=== PATIENT | male | born 1985 | race Caucasian/White ===

== ENCOUNTER → 2016-05-27 | Outpatient (CLI) | payer OTHER | LOC: KOH-I 08:36 | DX: B18.2 Chronic viral hepatitis C (principal) | CPT/HCPCS: 76705 ==

== ENCOUNTER → 2016-06-16 | Outpatient (CLI) | payer OTHER | LOC: LAB 11:32 | DX: B18.2 Chronic viral hepatitis C (principal) | CPT/HCPCS: 36415; 80074; 80307; 82103; 82105; 82172; 82247; 82390; 82728; 82977; 83010; 83540; 83550; 83883; 84460; 85610; 86039; 86235; 86255; 87390; 87521; 87902; G0480 ==

== ENCOUNTER 2021-04-06 03:24 | Emergency (ER) | payer OTHER ==
[~2021-04-06 03:24] MED LIST: IBUPROFEN800 MG PO
[2021-04-06 04:27] LABS: HEMOGLOBIN 11.9 gm/dl (14.0-17.5); RED BLOOD COUNT 3.65 M/UL (4.20-5.50); WHITE BLOOD COUNT 3.7 K/UL (4.5-11.0)
[2021-04-06 04:58] LABS: BUN/CREATININE RATIO 10 (0-10)
== END 2021-04-06 07:50 | disposition home or self-care (01) ==
LOC: ER1 03:24
PROVIDERS: Physician Assistant Medical
DX: U07.1 COVID-19 (principal); G40.909 Epilepsy, unspecified, not intractable, without status epilepticus; K21.9 Gastro-esophageal reflux disease without esophagitis
CPT/HCPCS: 71045; 80053; 82550; 82553; 83605; 84484; 85025; 93005; 96374; 99284; G0480; J1953; J7030; U0002